=== PATIENT | male | born 1955 | race Caucasian/White ===

== ENCOUNTER → 2018-06-01 | Outpatient (CLI) | payer BC ==
--- NOTE | 2018-06-01 12:16 | XR ---
EXAMINATION TYPE: XR ankle complete RT DATE OF EXAM: 06/01/2018 COMPARISON: NONE HISTORY: Pain TECHNIQUE: Frontal, lateral and oblique images of the right ankle are obtained. COMPARISON: None. FINDINGS: There is no acute fracture/dislocation evident. The joint spaces appear within normal evans its. The overlying soft tissue appears unremarkable. IMPRESSION: There is no acute fracture or dislocation seen.
== END | disposition home or self-care (01) ==
LOC: RADXRYALE 11:35
PROVIDERS: ATTEND Family Medicine
DX: M25.571 Pain in right ankle and joints of right foot (principal)

== ENCOUNTER 2021-03-18 16:14 | Inpatient (IN) | payer MEDICARE ==
[2021-03-18] MEDS ORDERED: ALBUTEROL HFA INHALER INHALATION STA (19:58)
--- NOTE | 2021-03-18 20:04 | ED ---
SOB HPI - General Chief Complaint: Shortness of Breath Stated Complaint: TU, Cough Time Seen by Provider: 03/18/21 19:39 Source: patient, RN notes reviewed Mode of arrival: ambulatory Limitations: no limitations - History of Present Illness Initial Comments: 65-year-old male presents with complaints of fevers chills cough shortness of breath sweats exertional dyspnea. He was diagnosed with Covid 19 last week approximately 4-5 days ago. Patient was seen by his doctor today and told come the emergency department as he demonstrates bilateral lower lobe pneumonia on x- ray done at the [facility]. Complaint: shortness of breath, cough - Related Data Home Medications Medication Instructions Recorded Confirmed Ascorbic Acid [Vitamin C] 500 mg PO DAILY 03/18/21 03/18/21 Cholecalciferol [Vitamin D3 (25 25 mcg PO DAILY 03/18/21 03/18/21 Mcg = 1000 Iu)] Magnesium 250 mg PO DAILY 03/18/21 03/18/21 Zinc 50 mg PO DAILY 03/18/21 03/18/21 Allergies Allergy/AdvReac Type Severity Reaction Status Date / Time No Known Allergies Allergy Verified 03/18/21 21:58 Review of Systems ROS Statement: Those systems with pertinent positive or pertinent negative responses have been documented in the HPI. ROS Other: All systems not noted in ROS Statement are negative. Past Medical History Past Medical History: No Reported History History of Any Multi-Drug Resistant Organisms: None Reported Past Surgical History: Hysterectomy Past Psychological History: No Psychological Hx Reported Smoking Status: Never smoker Past Alcohol Use History: None Reported Past Drug Use History: None Reported General Exam - General Exam Comments Initial Comments: This a well-developed well-nourished awake alert oriented times 3 male Limitations: no limitations General appearance: alert, in no apparent distress Head exam: Present: atraumatic, normocephalic, normal inspection Eye exam: Present: normal appearance, PERRL, EOMI. Absent: scleral icterus, conjunctival injection, periorbital swelling ENT exam: Present: normal exam, mucous membranes moist Neck exam: Present: normal inspection. Absent: tenderness, meningismus, lymphadenopathy Respiratory exam: Present: decreased breath sounds. Absent: respiratory distress, wheezes, rales, rhonchi, stridor Cardiovascular Exam: Present: regular rate, normal rhythm, normal heart sounds. Absent: systolic murmur, diastolic murmur, rubs, gallop, clicks GI/Abdominal exam: Present: soft, normal bowel sounds. Absent: distended, tenderness, guarding, rebound, rigid Extremities exam: Present: normal inspection, full ROM, normal capillary refill. Absent: tenderness, pedal edema, joint swelling, calf tenderness Back exam: Present: normal inspection Neurological exam: Present: alert, oriented X3, CN II-XII intact Psychiatric exam: Present: normal affect, normal mood Skin exam: Present: warm, dry, intact, normal color. Absent: rash Course Vital Signs 03/18/21 17:56 Temperature 97.9 F Pulse Rate 74 Respiratory 20 Rate Blood Pressure 140/90 O2 Sat by Pulse 96 Oximetry - Reevaluation(s) Reevaluation #1: 03/18/21 23:04 Patient did get some relief with the inhaler. Medical Decision Making - Medical Decision Making I did discuss findings with the patient and his . Patient be admitted I did discuss case with Dr. Kat Tovar will be consulted - Lab Data Result diagrams: 03/18/21 20:31 03/18/21 20:31 Lab Results 03/18/21 03/18/21 03/18/21 Range/Units 20:31 20:31 20:31 WBC 10.6 (3.8-10.6) k/uL RBC 4.99 (4.30-5.90) m/uL Hgb 14.4 (13.0-17.5) gm/dL Hct 43.2 (39.0-53.0) % MCV 86.7 (80.0-100.0) fL MCH 28.8 (25.0-35.0) pg MCHC 33.2 (31.0-37.0) g/dL RDW 12.9 (11.5-15.5) % Plt Count 486 H (150-450) k/uL MPV 7.2 Neutrophils % 72 % Lymphocytes % 17 % Monocytes % 5 % Eosinophils % 4 % Basophils % 1 % Neutrophils # 7.6 (1.3-7.7) k/uL Lymphocytes # 1.8 (1.0-4.8) k/uL Monocytes # 0.6 (0-1.0) k/uL Eosinophils # 0.4 (0-0.7) k/uL Basophils # 0.1 (0-0.2) k/uL PT 10.0 (9.0-12.0) sec INR 0.9 (<1.2) APTT 26.6 (22.0-30.0) sec D-Dimer 0.65 H (<0.60) mg/L FEU Sodium 137 (137-145) mmol/L Potassium 5.2 H (3.5-5.1) mmol/L Chloride 103 (98-107) mmol/L Carbon Dioxide 27 (22-30) mmol/L Anion Gap 7 mmol/L BUN 12 (9-20) mg/dL Creatinine 0.73 (0.66-1.25) mg/dL Est GFR (CKD-EPI)AfAm >90 (>60 ml/min/1.73 sqM) Est GFR (CKD-EPI)NonAf >90 (>60 ml/min/1.73 sqM) Glucose 104 H (74-99) mg/dL Plasma Lactic Acid Ned (0.7-2.0) mmol/L Calcium 8.4 (8.4-10.2) mg/dL Magnesium 2.8 H (1.6-2.3) mg/dL Total Bilirubin 0.5 (0.2-1.3) mg/dL AST 31 (17-59) U/L ALT 16 (4-49) U/L Alkaline Phosphatase 76 (38-126) U/L Troponin I (0.000-0.034) ng/mL NT-Pro-B Natriuret Pep pg/mL Total Protein 7.1 (6.3-8.2) g/dL Albumin 3.6 (3.5-5.0) g/dL 03/18/21 03/18/21 03/18/21 Range/Units 20:31 20:31 20:31 WBC (3.8-10.6) k/uL RBC (4.30-5.90) m/uL Hgb (13.0-17.5) gm/dL Hct (39.0-53.0) % MCV (80.0-100.0) fL MCH (25.0-35.0) pg MCHC (31.0-37.0) g/dL RDW (11.5-15.5) % Plt Count (150-450) k/uL MPV Neutrophils % % Lymphocytes % % Monocytes % % Eosinophils % % Basophils % % Neutrophils # (1.3-7.7) k/uL Lymphocytes # (1.0-4.8) k/uL Monocytes # (0-1.0) k/uL Eosinophils # (0-0.7) k/uL Basophils # (0-0.2) k/uL PT (9.0-12.0) sec INR (<1.2) APTT (22.0-30.0) sec D-Dimer (<0.60) mg/L FEU Sodium (137-145) mmol/L Potassium (3.5-5.1) mmol/L Chloride (98-107) mmol/L Carbon Dioxide (22-30) mmol/L Anion Gap mmol/L BUN (9-20) mg/dL Creatinine (0.66-1.25) mg/dL Est GFR (CKD-EPI)AfAm (>60 ml/min/1.73 sqM) Est GFR (CKD-EPI)NonAf (>60 ml/min/1.73 sqM) Glucose (74-99) mg/dL Plasma Lactic Acid Ned 1.2 (0.7-2.0) mmol/L Calcium (8.4-10.2) mg/dL Magnesium (1.6-2.3) mg/dL Total Bilirubin (0.2-1.3) mg/dL AST (17-59) U/L ALT (4-49) U/L Alkaline Phosphatase (38-126) U/L Troponin I <0.012 (0.000-0.034) ng/mL NT-Pro-B Natriuret Pep 51 pg/mL Total Protein (6.3-8.2) g/dL Albumin (3.5-5.0) g/dL - Radiology Data Radiology results: report reviewed (Imaging reviewed no evidence of PE however he does have evidence of left upper and lower lobe infiltrates and right lower lobe infiltrate with some scattered infiltrate throughout), image reviewed Disposition Clinical Impression: Pneumonia due to COVID-19 virus, Bronchospasm, acute, Failure to thrive in adult Disposition: ADMITTED IP TO THIS HOSP Condition: Fair Referrals: Rubin Guaman DO [Primary Care Provider] - 1-2 days
[2021-03-18 20:39] LABS: Basophils # (A) 0.1 k/uL (0-0.2); Basophils % (A) 1 %; Eosinophils # (A) 0.4 k/uL (0-0.7); Eosinophils % (A) 4 %; HCT 43.2 % (39.0-53.0); HGB 14.4 gm/dL (13.0-17.5); Lymphocytes # (A) 1.8 k/uL (1.0-4.8); Lymphocytes % (A) 17 %; MCH 28.8 pg (25.0-35.0); MCHC 33.2 g/dL (31.0-37.0); MCV 86.7 fL (80.0-100.0); Mean Platelet Volume 7.2; Monocytes # (A) 0.6 k/uL (0-1.0); Monocytes % (A) 5 %; Neutrophils # (A) 7.6 k/uL (1.3-7.7); Neutrophils % (A) 72 %; Platelet Count 486 k/uL (150-450); RBC 4.99 m/uL (4.30-5.90); RDW 12.9 % (11.5-15.5); WBC 10.6 k/uL (3.8-10.6)
[2021-03-18 20:55] LABS: ALT 16 U/L (4-49); AST 31 U/L (17-59); African American GFR (CKD) >90 (>60 ml/min/1.73 sqM); Albumin 3.6 g/dL (3.5-5.0); Alkaline Phosphatase 76 U/L (38-126); Anion Gap 7 mmol/L; Blood Urea Nitrogen 12 mg/dL (9-20); Calcium 8.4 mg/dL (8.4-10.2); Carbon Dioxide 27 mmol/L (22-30); Chloride 103 mmol/L (98-107); Glucose 104 mg/dL (74-99); Magnesium 2.8 mg/dL (1.6-2.3); Non-African American GFR(CKD) >90 (>60 ml/min/1.73 sqM); Sodium 137 mmol/L (137-145); Total Bilirubin 0.5 mg/dL (0.2-1.3); Total Protein 7.1 g/dL (6.3-8.2)
[2021-03-18 21:00] LABS: Potassium 5.2 mmol/L (3.5-5.1)
[2021-03-18 21:13] LABS: INR 0.9 (<1.2); Partial Thromboplastin Time 26.6 sec (22.0-30.0)
--- NOTE | 2021-03-18 22:42 | CT ---
EXAMINATION TYPE: CT angio chest DATE OF EXAM: 03/18/2021 COMPARISON: None HISTORY: cough, elevated d-dimer, +covid CT DLP: 438.6 mGycm Automated exposure control for dose reduction was used. CONTRAST: Performed with IV Contrast, patient injected with 85cc mL of Isovue 370. There are 3-D post processed images. There is some patchy infiltrate in both lower lobes. There is also some mild infiltrate left upper lo be. There are multiple subpleural nodular infiltrates in both lungs. These measure up to 1.5 cm per t here is no pericardial effusion. There is no pleural effusion. There is normal contrast opacification of the pulmonary arteries. There are no filling defects. Thora cic aorta is intact. There is no aneurysm or dissection. Thoracic spine is intact. There is no compression fracture. There are multiple calcified gallstones. IMPRESSION: No evidence of pulmonary embolism. Moderate patchy bilateral pneumonia. Cholelithiasis.
[2021-03-18] MEDS ORDERED: NALOXONE 0.4 MG/ML 1 ML VIAL IV PRN (23:07)
[2021-03-18] MEDS ORDERED: ACETAMINOPHEN TAB 325 MG TAB PO PRN (23:07)
[2021-03-18] MEDS: ALBUTEROL HFA INHALER INHALATION SCH (23:41)
[2021-03-19] MEDS: SODIUM CHLORIDE 0.9% 1,000 ML IV SCH ×2 (01:09→09:01)
[2021-03-19 01:11] VITALS: TEMP 98
[2021-03-19 01:32] LABS: C Reactive Protein 6.6 mg/dL (<1.0)
[2021-03-19] MEDS: ALBUTEROL HFA INHALER INHALATION SCH ×4 (03:28→16:30)
[2021-03-19] MEDS ORDERED: ZINC SULFATE 220 MG CAP PO SCH (09:00)
[2021-03-19] MEDS ORDERED: CHOLECALCIFEROL 25 MCG (1000 IU) TABLET PO SCH (09:00)
[2021-03-19] MEDS ORDERED: MAGNESIUM OXIDE 400 MG TAB PO SCH (09:00)
[2021-03-19] MEDS ORDERED: ASCORBIC ACID 500 MG TAB PO SCH (09:00)
[2021-03-19] MEDS ORDERED: dexAMETHasone 2 MG TAB PO SCH (09:30)
[2021-03-19] MEDS ORDERED: ENOXAPARIN 40 MG/0.4 ML SYRINGE SQ SCH (09:30)
--- NOTE | 2021-03-19 09:42 | P.CNPUL ---
History of Present Illness Consult date: 03/19/21 Requesting physician: Gertrudis Stephens Reason for consult: dyspnea, hypoxemia, abnormal CXR/CT (CoVID 19 pneumonia) Chief complaint: Shortness of breath, cough, congestion History of present illness: This is a 65-year-old gentleman who follows with Dr. serjio goss as his primary care provider. No significant past medical history. Lifelong nonsmoker. Approximately 10 days ago the patient developed shortness of breath, cough congestion fever and weakness. He did test positive for COVID-19 on 03/08/2021 at [facility]. He is not vaccinated stating he did not want to be "poisoned". He did have monoclonal antibodies per EMS. He was seen by his PCP yesterday and was told he had bilateral pneumonia and was sent to the emergency room for the same. He is seen today in consultation in the ER. He is currently sitting up on the stretcher. Awake and alert in no acute distress. Maintaining O2 saturations at 95% on 2 L/m per nasal cannula. He is afebrile. Hemodynamically stable. CT angiogram revealed no evidence of pulmonary embolism. There is moderate patchy bilateral pneumonia consistent with COVID-19. White count 10.6. Hemoglobin 14.4. D-dimer 0.65. Sodium 137. Potassium 5.2. Creatinine 0.73. LDH 871. C-reactive protein 6.6. He's been initiated on vitamin supplements and albuterol. Review of Systems REVIEW OF SYSTEMS: CONSTITUTIONAL: As for generalized weakness. Fever, chills. Denies any recent significant weight loss or weight gain. EYES: Denies change in vision. EARS, NOSE, MOUTH, THROAT: Denies headaches, denies sore throat. CARDIOVASCULAR: Denies chest pain, palpitations or syncopal episodes. RESPIRATORY: Acid of 4 shortness of breath, cough, congestion no hemoptysis. GASTROINTESTINAL: Denies change in appetite, denies abdominal pain GENITOURINARY: Denies hematuria, denies infections. MUSKULOSKELETAL: Denies pain, denies swelling. INTEGUMENTARY: Denies rash, denies eczema. NEUROLOGICAL: Denies recent memory loss, no recent seizure activity. PSYCHIATRIC: Denies anxiety, denies depression. HEMATOLOGIC/LYMPHATIC: Denies anemia, denies enlarged lymph nodes. Past Medical History Past Medical History: No Reported History History of Any Multi-Drug Resistant Organisms: None Reported Past Surgical History: Hysterectomy Past Psychological History: No Psychological Hx Reported Smoking Status: Never smoker Past Alcohol Use History: None Reported Past Drug Use History: None Reported Medications and Allergies Home Medications Medication Instructions Recorded Confirmed Type Ascorbic Acid [Vitamin C] 500 mg PO DAILY 03/18/21 03/18/21 History Cholecalciferol [Vitamin D3 (25 25 mcg PO DAILY 03/18/21 03/18/21 History Mcg = 1000 Iu)] Magnesium 250 mg PO DAILY 03/18/21 03/18/21 History Zinc 50 mg PO DAILY 03/18/21 03/18/21 History Allergies Allergy/AdvReac Type Severity Reaction Status Date / Time No Known Allergies Allergy Verified 03/18/21 21:58 Physical Exam Vitals: Vital Signs Temp Pulse Resp BP Pulse Ox 03/19/21 06:43 98.0 F 69 16 131/66 95 03/19/21 04:00 98.0 F 80 18 122/58 96 03/19/21 01:09 98.0 F 79 18 133/82 96 03/18/21 17:56 97.9 F 74 20 140/90 96 Intake and Output 03/18/21 03/19/21 03/19/21 22:59 06:59 14:59 Other: Weight 92.986 kg GENERAL EXAM: Alert, 65 year old gentleman, on 2 L nasal cannula, comfortable in no apparent distress. HEAD: Normocephalic. EYES: Normal reaction of pupils, equal size. NOSE: Clear with pink turbinates. THROAT: No erythema or exudates. NECK: No masses, no JVD. CHEST: No chest wall deformity. LUNGS: Equal air entry with crackles in the bilateral bases. CVS: S1 and S2 normal with no audible murmur, regular rhythm. ABDOMEN: No hepatosplenomegaly, normal bowel sounds, no guarding or rigidity. SPINE: No scoliosis or deformity SKIN: No rashes CENTRAL NERVOUS SYSTEM: No focal deficits, tone is normal in all 4 extremities. EXTREMITIES: There is no peripheral edema. No clubbing, no cyanosis. Peripheral pulses are intact. Results - Laboratory Findings CBC and BMP: 03/18/21 20:31 03/18/21 20:31 PT/INR, D-dimer PT 10.0 sec (9.0-12.0) 03/18/21 20:31 INR 0.9 (<1.2) 03/18/21 20:31 D-Dimer 0.65 mg/L FEU (<0.60) H 03/18/21 20:31 Abnormal lab findings: Abnormal Labs 03/18/21 03/18/21 03/18/21 20:31 20:31 20:31 Plt Count 486 H D-Dimer 0.65 H Potassium 5.2 H Glucose 104 H Magnesium 2.8 H Lactate Dehydrogenase C-Reactive Protein 03/18/21 20:31 Plt Count D-Dimer Potassium Glucose Magnesium Lactate Dehydrogenase 871 H C-Reactive Protein 6.6 H - Diagnostic Findings Chest x-ray: image reviewed CT scan - chest: image reviewed Assessment and Plan Assessment: 1 Acute hypoxemic respiratory failure secondary to an acute COVID-19 pneumonia. Not vaccinated. Tested positive on 03/08/2021 at [facility]. Did receive m onoclonal antibodies on 03/09/2021. 2 Mildly elevated inflammatory markers secondary to above Plan: The patient was seen and evaluated by Dr. Tovar Chest x-ray, CAT scans and labs reviewed Continue vitamin supplements Add Decadron, Lovenox Titrate the FiO2 as tolerated We will continue to follow and make further recommendations based on his clinical status I, the cosigning physician, performed a history & physical examination of the patient. Lungs sounds with crackles in the bilateral bases. Maintaining good O2 saturations in the 90s on 2 L/m per nasal cannula. I discussed the assessment and plan of care with my nurse practitioner, Felipa Dan. I attest to the above c onsultation as dictated by her. Time with Patient: Greater than 30
--- NOTE | 2021-03-19 10:27 | P.HPIM ---
History of Present Illness Patient is a 65-year-old pleasant male came in with the complaints of shortness of breath condition cough and fever for the symptoms has been going on for about 10 days patient wasn't a doesn't have any fever patient did receive monoclonal antibody infusion. Patient has seen a piece yesterday who did a chest x-ray which showed bilateral infiltrate because of patient was asked to go to ER patient is saturating at 92% at rest on room air presently patient was requiring oxygen as today patient is feeling better today. Patient d-dimer is only is 0.65 normal for his age. REVIEW OF SYSTEMS: CONSTITUTIONAL: No fever, no malaise, no fatigue. HEENT: No recent visual problems or hearing problems. Denied any sore throat. CARDIOVASCULAR: No chest pain, orthopnea, PND, no palpitations, no syncope. PULMONARY: Mentioned in HPI GASTROINTESTINAL: No diarrhea, no nausea, no vomiting, no abdominal pain. NEUROLOGICAL: No headaches, no weakness, no numbness. HEMATOLOGICAL: Denies any bleeding or petechiae. GENITOURINARY: Denies any burning micturition, frequency, or urgency. MUSCULOSKELETAL/RHEUMATOLOGICAL: Denies any joint pain, swelling, or any muscle pain. ENDOCRINE: Denies any polyuria or polydipsia. The rest of the 14-point review of systems is negative. PHYSICAL EXAMINATION: GENERAL: The patient is alert and oriented x3, not in any acute distress. Well developed, well nourished. HEENT: Pupils are round and equally reacting to light. EOMI. No scleral icterus. No conjunctival pallor. Normocephalic, atraumatic. No pharyngeal erythema. No thyromegaly. CARDIOVASCULAR: S1 and S2 present. No murmurs, rubs, or gallops. PULMONARY: Chest is clear to auscultation, no wheezing or crackles. ABDOMEN: Soft, nontender, nondistended, normoactive bowel sounds. No palpable organomegaly. MUSCULOSKELETAL: No joint swelling or deformity. EXTREMITIES: No cyanosis, clubbing, or pedal edema. NEUROLOGICAL: Gross neurological examination did not reveal any focal deficits. SKIN: No rashes. Assessment and plan -COVID-19 pneumonia and hypoxia seconded COVID-19 pneumonia. Patient is feeling better today patient is not acquiring oxygen will ablate the patient and if he is not desaturating upon ablation patient will be discharged with the few days of Decadron and multivitamins for Covid -Systemic inflammatory response secondary to COVID-19. -Ruled out pulmonary embolism DVT prophylaxis: Lovenox for patient and sustaining in the hospital Past Medical History Past Medical History: No Reported History History of Any Multi-Drug Resistant Organisms: None Reported Past Surgical History: Hysterectomy Past Psychological History: No Psychological Hx Reported Smoking Status: Never smoker Past Alcohol Use History: None Reported Past Drug Use History: None Reported Medications and Allergies Home Medications Medication Instructions Recorded Confirmed Type Ascorbic Acid [Vitamin C] 500 mg PO DAILY 03/18/21 03/18/21 History Cholecalciferol [Vitamin D3 (25 25 mcg PO DAILY 03/18/21 03/18/21 History Mcg = 1000 Iu)] Magnesium 250 mg PO DAILY 03/18/21 03/18/21 History Zinc 50 mg PO DAILY 03/18/21 03/18/21 History Allergies Allergy/AdvReac Type Severity Reaction Status Date / Time No Known Allergies Allergy Verified 03/18/21 21:58 Physical Exam Vitals: Vital Signs Temp Pulse Resp BP Pulse Ox 03/19/21 06:43 98.0 F 69 16 131/66 95 03/19/21 04:00 98.0 F 80 18 122/58 96 03/19/21 01:09 98.0 F 79 18 133/82 96 03/18/21 17:56 97.9 F 74 20 140/90 96 Intake and Output 03/18/21 03/19/21 03/19/21 22:59 06:59 14:59 Other: Weight 92.986 kg Results CBC & Chem 7: 03/18/21 20:31 03/18/21 20:31 Labs: Abnormal Lab Results - Last 24 Hours (Table) 03/18/21 03/18/21 03/18/21 Range/Units 20:31 20:31 20:31 Plt Count 486 H (150-450) k/uL D-Dimer 0.65 H (<0.60) mg/L FEU Potassium 5.2 H (3.5-5.1) mmol/L Glucose 104 H (74-99) mg/dL Magnesium 2.8 H (1.6-2.3) mg/dL Lactate Dehydrogenase (313-618) U/L C-Reactive Protein (<1.0) mg/dL Procalcitonin (0.02-0.09) ng/mL 03/18/21 03/18/21 Range/Units 20:31 20:31 Plt Count (150-450) k/uL D-Dimer (<0.60) mg/L FEU Potassium (3.5-5.1) mmol/L Glucose (74-99) mg/dL Magnesium (1.6-2.3) mg/dL Lactate Dehydrogenase 871 H (313-618) U/L C-Reactive Protein 6.6 H (<1.0) mg/dL Procalcitonin 0.11 H (0.02-0.09) ng/mL
[2021-03-19 13:47] VITALS: BP 160/82; PULSE 96; RESP 18
--- NOTE | 2021-03-19 23:45 | P.DS ---
Providers Date of admission: 03/18/21 23:08 Expected date of discharge: 03/19/21 Attending physician: Gertrudis Stephens Consults: 03/18/21 23:08 Consult Physician Routine Consulting Provider: Claudia Tovar Consult Reason/Comments: Code pneumonia, bronchospasm Do you want consulting provider notified?: Yes Primary care physician: Rubin Leal [facility] Course: Final diagnosis -COVID-19 pneumonia and hypoxia secondary to COVID-19 pneumonia -Systemic inflammatory response secondary to COVID-19. -Ruled out pulmonary embolism -DVT prophylaxis -Full code Discharge disposition Patient is being discharged in a stable condition with guarded prognosis to home. Patient will follow-up with Dr. Leal in the outpatient setting upon discharge. Patient is to continue with dexamethasone along with vitamin and zinc supplements on discharge. Total time taken is greater than 35 minutes. Hospital Course Patient is a 65-year-old pleasant male came in with the complaints of shortness of breath condition cough and fever for the symptoms has been going on for about 10 days patient wasn't a doesn't have any fever patient did receive monoclonal antibody infusion. Patient has seen a piece yesterday who did a chest x-ray which showed bilateral infiltrate because of patient was asked to go to ER patient is saturating at 92% at rest on room air presently patient was requiring oxygen as today patient is feeling better today. Patient d-dimer is only is 0.65 normal for his age. 03/19/2021 Patient was seen in follow up after being evaluated by pulmonary and patient is currently on room air with occasional use of 2 Liters via NC with increased exertion and will be set up for home oxygen for shortness of breath secondary to Covid 19 pneumonia. Patient will continue on covid 19 vitamins along with dexamethasone to complete the course. Patient will need follow up with pulmonary in the outpatient setting. Patient is requesting to go home. Currently no reports of chest pain, worsening shortness of breath, or palpitations. Patient is afebrile. No reports of nausea or vomiting and patient is tolerating diet. Patient will be discharged home today. Physical Exam: GENERAL: The patient is alert and oriented x3, not in any acute distress. Well developed, well nourished. HEENT: Pupils are round and equally reacting to light. EOMI. No scleral icterus. No conjunctival pallor. Normocephalic, atraumatic. No pharyngeal erythema. No thyromegaly. CARDIOVASCULAR: S1 and S2 present. No murmurs, rubs, or gallops. PULMONARY: Chest is clear to auscultation, no wheezing or crackles. ABDOMEN: Soft, nontender, nondistended, normoactive bowel sounds. No palpable organomegaly. MUSCULOSKELETAL: No joint swelling or deformity. EXTREMITIES: No cyanosis, clubbing, or pedal edema. NEUROLOGICAL: Gross neurological examination did not reveal any focal deficits. SKIN: No rashes. Please refer to medication reconciliation sheet for a list of medications. Patient Condition at Discharge: Good Plan - Discharge Summary New Discharge Prescriptions: New Dexamethasone 6 mg PO DAILY 10 Days #10 tablet Zinc Sulfate [Orazinc] 220 mg PO DAILY 30 Days #30 cap Acetaminophen Tab [Tylenol] 650 mg PO Q6HR PRN #0 tab PRN Reason: Mild Pain Or Fever > 100.5 Albuterol Inhaler [Ventolin Hfa Inhaler] 2 puff INHALATION RT-Q4H 30 Days #1 gm Continue Cholecalciferol [Vitamin D3 (25 Mcg = 1000 Iu)] 25 mcg PO DAILY Ascorbic Acid [Vitamin C] 500 mg PO DAILY Magnesium 250 mg PO DAILY Discontinued Zinc 50 mg PO DAILY Discharge Medication List Ascorbic Acid [Vitamin C] 500 mg PO DAILY 03/18/21 [History] Cholecalciferol [Vitamin D3 (25 Mcg = 1000 Iu)] 25 mcg PO DAILY 03/18/21 [History] Magnesium 250 mg PO DAILY 03/18/21 [History] Acetaminophen Tab [Tylenol] 650 mg PO Q6HR PRN #0 tab 03/19/21 [Rx] Albuterol Inhaler [Ventolin Hfa Inhaler] 2 puff INHALATION RT-Q4H 30 Days #1 gm 03/19/21 [Rx] Dexamethasone 6 mg PO DAILY 10 Days #10 tablet 03/19/21 [Rx] Zinc Sulfate [Orazinc] 220 mg PO DAILY 30 Days #30 cap 03/19/21 [Rx] Follow up Appointment(s)/Referral(s): Claudia Tovar MD [STAFF PHYSICIAN] - 2 Weeks [facility] [NON-STAFF] - 1 Week Rubin Leal DO [Primary Care Provider] - 1-2 days Patient Instructions/Handouts: Albuterol (By breathing), Zinc Sulfate (By mouth), Dexamethasone (By mouth), Using Oxygen at Home (DC), Hypoxia (GEN), Pulse Oximetry (DC) Activity/Diet/Wound Care/Special Instructions: Activity Limited until follow-up Follow-up with primary care provider on discharge Follow-up with pulmonary outpatient Continue taking medications as prescribed Encourage fluids and rest Patient to receive oxygen 2 L via nasal cannula secondary to COVID-19 Discharge Disposition: HOME SELF-CARE
== END 2021-03-19 16:50 | disposition home or self-care (01) | DRG 177 ==
LOC: EC 16:14 → 1SOBS 23:08 → 4SSUR 03-19 14:53
PROVIDERS: ADMIT Internal Medicine; ATTEND Internal Medicine
DX: U07.1 COVID-19 (principal); J12.82 Pneumonia due to coronavirus disease 2019; J96.01 Acute respiratory failure with hypoxia; R62.7 Adult failure to thrive; J98.01 Acute bronchospasm; R53.1 Weakness
CPT/HCPCS: 36415; 71046; 71275; 80053; 82728; 83605; 83615; 83735; 83880; 84145; 84484; 85025; 85379; 85610; 85730; 86140; 87040; 93005; 94640; 99285

== ENCOUNTER → 2021-03-18 | Outpatient (CLI) | payer MEDICARE ==
--- NOTE | 2021-03-18 15:53 | XR ---
EXAMINATION TYPE: XR chest 2V DATE OF EXAM: 03/18/2021 COMPARISON: None INDICATION: Cough following Covid TECHNIQUE: Frontal and lateral views of the chest are obtained. FINDINGS: The heart size is mildly prominent. The pulmonary vasculature is normal. Hyperinflation and flattening the diaphragms present. Correlate for COPD. There may be some elevation of the right diaphragm medially. Differential should include some atelectasis of the right middle lo be. Peripheral infiltrates to the left lung. Follow-up exams are recommended.. IMPRESSION: 1. Peripheral left lung infiltrates and silhouetting along the right heart border. Correlate for resi dual atypical pneumonia on the left and atelectasis on the right. Follow-up exams are recommended.
== END | disposition home or self-care (01) ==
LOC: RADXRYALE 14:26
PROVIDERS: ATTEND Physician Assistant Medical
DX: Z53.9 Procedure and treatment not carried out, unspecified reason (principal)
CPT/HCPCS: 71046

== ENCOUNTER → 2021-03-26 | Outpatient (CLI) | payer MEDICARE ==
--- NOTE | 2021-03-26 09:56 | XR ---
EXAMINATION TYPE: XR chest 2V DATE OF EXAM: 03/26/2021 COMPARISON: Chest x-ray CTA chest March 18, 2021 HISTORY: COVID infection recently. TECHNIQUE: Frontal and lateral views of the chest are obtained. FINDINGS: There is persistent left mid to lower lung opacities greatest in the periphery and right b asilar opacity. Focal elevation medial aspect right hemidiaphragm redemonstrated. Silhouetting of the left heart border still seen The cardiac silhouette size is stable and upper limits of normal. The osseous structures are intact. IMPRESSION: Persistent left greater than right bilateral mid to lower lung opacities could reflect r esidual infiltrates and/or developing scarring remain present. Slight improvement in findings in the left lung noted from 8 days earlier.
== END | disposition home or self-care (01) ==
LOC: RADXRYALE 08:56
PROVIDERS: ATTEND Family Medicine
DX: R91.8 Other nonspecific abnormal finding of lung field (principal)
CPT/HCPCS: 71046

== ENCOUNTER → 2021-11-19 | Outpatient (CLI) | payer MEDICARE ==
--- NOTE | 2021-11-19 09:07 | XR ---
EXAMINATION TYPE: XR chest 2V DATE OF EXAM: 11/19/2021 8:53 AM COMPARISON: Chest radiographs from 04/10/2021 TECHNIQUE: XR chest 2V Frontal and lateral views of the chest. CLINICAL INDICATION:Male, 66 years old with history of J158 PNEUMONIA BACT; FINDINGS: Lungs/Pleura: There is flattening of the diaphragm with increased lucency of the lungs. No evidence o f pneumothorax, pleural effusion or focal consolidation. Pulmonary vascularity: Unremarkable. Heart/mediastinum: Cardiomediastinal silhouette is enlarged and stable. Musculoskeletal: Multiple level degenerative disc disease changes seen throughout the spine. IMPRESSION: * No acute cardiopulmonary disease/process. * COPD changes.
== END | disposition home or self-care (01) ==
LOC: RADXRYALE 08:41
PROVIDERS: ATTEND Family Medicine
DX: J44.9 Chronic obstructive pulmonary disease, unspecified (principal)
CPT/HCPCS: 71046

== ENCOUNTER → 2023-03-31 | Outpatient (CLI) | payer MEDICARE ==
--- NOTE | 2023-03-31 16:57 | XR ---
EXAMINATION TYPE: XR chest 2V DATE OF EXAM: 03/31/2023 COMPARISON: 11/19/21 HISTORY: Shortness of breath TECHNIQUE: Frontal and lateral views of the chest are obtained. FINDINGS: Scattered senescent parenchymal changes noted. Hyperinflation compatible with COPD. No evidence for infiltrate. No evidence for atelectasis. Stable opacity right medial lung base unchan ged from prior examinations. Heart size is stable. Mediastinal structures are stable and grossly unremarkable. No evidence for hilar prominence. Degenerative changes dorsal spine. IMPRESSION: 1. No evidence for acute pulmonary disease.
== END | disposition home or self-care (01) ==
LOC: RADXRYALE 16:13
PROVIDERS: ATTEND Family Medicine
DX: J18.0 Bronchopneumonia, unspecified organism (principal)
CPT/HCPCS: 71046